=== PATIENT | female | born 1950 | race Caucasian/White ===

== ENCOUNTER 2021-01-02 18:34 | Inpatient (IN) | payer MEDICARE, OTHER ==
[~2021-01-02] VITALS: Ht 170.2 cm; Wt 80.3 kg
[2021-01-02 19:53] LABS: HEMOGLOBIN 13.1 gm/dl (12.3-15.3); RED BLOOD COUNT 4.67 M/UL (4.00-5.10); WHITE BLOOD COUNT 5.4 K/UL (4.5-11.0)
[2021-01-02 20:09] LABS: BUN/CREATININE RATIO 15 (0-10)
[2021-01-02] MEDS ORDERED: PEPCID40 MG PO (22:17)
[2021-01-02] MEDS ORDERED: VITAMIN C500 MG PO (22:18)
[2021-01-02] MEDS ORDERED: SYMBICORT 16010.2 GM INH (22:18)
[2021-01-02] MEDS ORDERED: FOSAMAX70 MG PO (22:19)
[2021-01-02] MEDS ORDERED: AMOXICILLIN500 MG PO (22:19)
[2021-01-02] MEDS ORDERED: PREDNISONE20 MG PO (22:21)
[2021-01-02] MEDS ORDERED: INCRUSE ELLI62.5 MCG INH (22:21)
[2021-01-02] MEDS ORDERED: LEVOTHYROXINE175 MC1 PO (22:22)
[2021-01-02] MEDS ORDERED: ELIQUIS 5 MG TAB5 MG PO (22:23)
[2021-01-02] MEDS ORDERED: NEURONTIN400 MG PO (22:23)
[2021-01-02] MEDS ORDERED: MULTAQ400 MG PO (22:23)
[2021-01-02] MEDS ORDERED: BUPRENORPHIN-N1 EACH PO (22:24)
[2021-01-02] MEDS ORDERED: ZINC50 M1 PO (22:25)
[2021-01-02] MEDS ORDERED: VITAMIN D325 MC6 PO (22:25)
[2021-01-02] MEDS ORDERED: GAVILAX17 GM PO (22:26)
[2021-01-02] MEDS ORDERED: ALBUTEROL2.5 MG/3 M INH (22:27)
[2021-01-03 03:31] LABS: HEMOGLOBIN 12.6 gm/dl (12.3-15.3); RED BLOOD COUNT 4.51 M/UL (4.00-5.10); WHITE BLOOD COUNT 4.1 K/UL (4.5-11.0)
[2021-01-03 03:55] LABS: BUN/CREATININE RATIO 17 (0-10)
--- NOTE | 2021-01-03 18:18 | NUR ---
REPORTED TO DR. RAPHAEL OF PATIENT EPISODES OF INCREASE HEART RATE UP TO 160'S. RECEIVED ORDER TO ORDER FOR EKG. SHOWED THE TELEMETRY READING SENT AND EKG RESULT. PATIENT HAS NO REPORTED EPISODE OF C/P, DIZZINESS OR ANY COMPLAINTS OF SICK OF STOMACH, DR RAPHAEL NO ORDER RECEIVED. MARK INFORMED ME THAT SHE WAS NOTIFIED BY TELEMETRY OF PATIENT HAVING EPISODE OF AFIB WITH RVR, HEART RATE INCREASED. REPORTED TO DR. RAPHAEL AND RECEIVED ORDER. INFORMED HIM OF CONCERN OF THE INCREASED HEART RATE. ADMINISTERED MEDICATIONS ORDERED AND AFTER 10 MIN HEART RATE WAS ON 80'S. PATIENT WATCHING TV, RESTING COMFORTABLY. DENIES ANY CARDIAC INSUFFISIENCY. REPORTED THE ABOVE TO DR. RAPHAEL AND ACKNOWLEDGED.
[2021-01-04 03:23] LABS: HEMOGLOBIN 13.1 gm/dl (12.3-15.3); RED BLOOD COUNT 4.7 M/UL (4.00-5.10); WHITE BLOOD COUNT 3.8 K/UL (4.5-11.0)
[2021-01-04 03:49] LABS: BUN/CREATININE RATIO 19 (0-10)
--- NOTE | 2021-01-04 10:19 | NUR ---
PATIENT REFUSED TO TAKE HER MORNING MEDICATIONS, OFFERED EARLIER AND OFFERED AGAIN THIS TIME. PATIENT STATED SHE WILL NOT TAKE HER MEDICINE UNTIL 1030 REPORTED THE ABOVE TO DR. RAPHAEL
[2021-01-05 03:32] LABS: HEMOGLOBIN 12.5 gm/dl (12.3-15.3); RED BLOOD COUNT 4.52 M/UL (4.00-5.10)
[2021-01-05 03:38] LABS: WHITE BLOOD COUNT 9.1 K/UL (4.5-11.0)
[2021-01-05 03:56] LABS: BUN/CREATININE RATIO 25 (0-10)
[2021-01-07 03:01] LABS: HEMOGLOBIN 12.7 gm/dl (12.3-15.3); RED BLOOD COUNT 4.57 M/UL (4.00-5.10); WHITE BLOOD COUNT 9.1 K/UL (4.5-11.0)
[2021-01-07 03:26] LABS: BUN/CREATININE RATIO 25 (0-10)
[2021-01-07] MEDS ORDERED: LOPRESSOR 25 MG25 MG PO (10:18)
[2021-01-07] MEDS ORDERED: IPRAT-ALBUT 0.5-3 ML NEB (10:18)
[2021-01-07] MEDS ORDERED: DOXYCYCLINE HY100 MG PO (10:20)
[2021-01-07] MEDS ORDERED: DEXAMETHASONE6 MG PO (10:20)
[2021-01-07] MEDS ORDERED: ZINC50 M1 PO (10:51)
== END 2021-01-07 17:44 | disposition home or self-care (01) | DRG 177 ==
LOC: ER1 18:34 → CDU 21:49 → M/S 21:49
PROVIDERS: Family Medicine; Internal Medicine; ADMIT Internal Medicine
PROC: 8E0ZXY6 Isolation (ICD-10-PCS; principal; 2021-01-02)
PROC: XW033E5 Introduction of Remdesivir Anti-infective into Peripheral Vein, Percutaneous Approach, New Technology Group 5 (ICD-10-PCS; 2021-01-02)
DX: U07.1 COVID-19 (principal); J12.82 Pneumonia due to coronavirus disease 2019; J96.21 Acute and chronic respiratory failure with hypoxia; D61.818 Other pancytopenia; F11.20 Opioid dependence, uncomplicated; J44.0 Chronic obstructive pulmonary disease with (acute) lower respiratory infection; J44.1 Chronic obstructive pulmonary disease with (acute) exacerbation; I48.0 Paroxysmal atrial fibrillation; G62.9 Polyneuropathy, unspecified; Z79.899 Other long term (current) drug therapy; Z79.01 Long term (current) use of anticoagulants; J44.9 Chronic obstructive pulmonary disease, unspecified; E03.9 Hypothyroidism, unspecified; F17.290 Nicotine dependence, other tobacco product, uncomplicated; Z88.2 Allergy status to sulfonamides; Z88.8 Allergy status to other drugs, medicaments and biological substances
CPT/HCPCS: ECHO; 36415; 36600; 71045; 80048; 80053; 80307; 81001; 82550; 82553; 82803; 83605; 83735; 84484; 85025; 85610; 87040; 87086; 93005; 93306; 94640; 94760; 96365; 96366; 96368; 96375; 97110; 97116; 97116-GP-CQ; 97162; 97530-GP-CQ; 99285; G0480; J0456; J0696; J1100; J2310; J7030; U0002

== ENCOUNTER 2021-04-20 17:14 | Emergency (ER) | payer OTHER, MEDICARE ==
[~2021-04-20 17:14] MED LIST: ALBUTEROL2.5 MG/3 M INH; AMOXICILLIN500 MG PO; BUPRENORPHIN-N1 EACH PO; DEXAMETHASONE6 MG PO; DOXYCYCLINE HY100 MG PO; ELIQUIS 5 MG TAB5 MG PO; FOSAMAX70 MG PO; GAVILAX17 GM PO; INCRUSE ELLI62.5 MCG INH; IPRAT-ALBUT 0.5-3 ML NEB; LEVOTHYROXINE175 MC1 PO; LOPRESSOR 25 MG25 MG PO; MULTAQ400 MG PO; NEURONTIN400 MG PO; PEPCID40 MG PO; PREDNISONE20 MG PO; SYMBICORT 16010.2 GM INH; VITAMIN C500 MG PO; VITAMIN D325 MC6 PO; ZINC50 M1 PO
[2021-04-20 17:46] LABS: RED BLOOD COUNT 3.95 M/UL (4.00-5.10); WHITE BLOOD COUNT 7.9 K/UL (4.5-11.0)
[2021-04-20 18:05] LABS: BUN/CREATININE RATIO 19 (0-10)
[2021-04-21] MEDS ORDERED: HYDROCODON-ACE1 EAC4 PO (00:57)
[2021-04-21] MEDS ORDERED: BACTROBAN OINT22 GM EXT (01:03)
[2021-04-21] MEDS ORDERED: CEPHALEXIN500 M1 PO (01:03)
== END 2021-04-21 01:28 | disposition home or self-care (01) ==
LOC: ER1 17:14
PROVIDERS: Physician Assistant
DX: S01.01XA Laceration without foreign body of scalp, initial encounter (principal); S81.812A Laceration without foreign body, left lower leg, initial encounter; S81.811A Laceration without foreign body, right lower leg, initial encounter; I48.91 Unspecified atrial fibrillation; E03.9 Hypothyroidism, unspecified; Z88.2 Allergy status to sulfonamides; Z88.6 Allergy status to analgesic agent; Z23 Encounter for immunization; W01.0XXA Fall on same level from slipping, tripping and stumbling without subsequent striking against object, initial encounter; Y92.410 Unspecified street and highway as the place of occurrence of the external cause; Y99.9 Unspecified external cause status
CPT/HCPCS: 12006; 70450; 71045; 72125; 72170; 73090; 73590; 73610; 80053; 82550; 82553; 83874; 84484; 85025; 85610; 90471; 90715; 93005; 96374; 96375; 96376; 99284; J0690; J2270; J2405

== ENCOUNTER 2021-09-06 16:58 | Inpatient (IN) | payer MEDICARE, OTHER ==
[~2021-09-06] VITALS: Ht 167.6 cm; Wt 86.2 kg
[~2021-09-06 16:58] MED LIST changes: +BACTROBAN OINT22 GM EXT; +CEPHALEXIN500 M1 PO; +HYDROCODON-ACE1 EAC4 PO
[2021-09-06 18:24] LABS: HEMOGLOBIN 11.9 gm/dl (12.3-15.3); RED BLOOD COUNT 4.33 M/UL (4.00-5.10); WHITE BLOOD COUNT 8.3 K/UL (4.5-11.0)
[2021-09-06 18:46] LABS: BUN/CREATININE RATIO 20 (0-10)
[2021-09-06] MEDS ORDERED: BETAPACE 80MG T80 MG PO (23:51)
[2021-09-06] MEDS ORDERED: BUMETANIDE1 MG PO (23:52)
[2021-09-06] MEDS ORDERED: DILTIAZEM 24HR120 M1 PO (23:52)
[2021-09-06] MEDS ORDERED: FLOXIN 0.3% OTIC5 ML EARLF (23:54)
[2021-09-06] MEDS ORDERED: KENALOG OINT 0.80 GM TP (23:55)
[2021-09-06] MEDS ORDERED: KENALOG CREAM 080 GM EXT (23:55)
[2021-09-06] MEDS ORDERED: VOLTAREN ARTHRI20 GM TP (23:57)
[2021-09-06] MEDS ORDERED: OMEGA 3 1,0001 EACH PO (23:58)
[2021-09-08 07:12] LABS: BUN/CREATININE RATIO 22 (0-10)
[2021-09-09] MEDS ORDERED: LEVALBUTER0.31 MG/3 NEB (11:27)
[2021-09-09] MEDS ORDERED: LASIX20 MG PO (11:28)
== END 2021-09-09 15:23 | disposition home or self-care (01) | DRG 291 ==
LOC: ER1 16:58 → CDU 20:54 → M/S 20:54
PROVIDERS: Emergency Medicine; Internal Medicine; ADMIT Internal Medicine
PROC: 5A2204Z Restoration of Cardiac Rhythm, Single (ICD-10-PCS; principal; 2021-09-07)
PROC: B24BZZZ Ultrasonography of Heart with Aorta (ICD-10-PCS; 2021-09-07)
PROC: 5A2204Z Restoration of Cardiac Rhythm, Single (ICD-10-PCS; 2021-09-08)
DX: I11.0 Hypertensive heart disease with heart failure (principal); I50.33 Acute on chronic diastolic (congestive) heart failure; J96.21 Acute and chronic respiratory failure with hypoxia; J44.1 Chronic obstructive pulmonary disease with (acute) exacerbation; E44.0 Moderate protein-calorie malnutrition; Z20.822 Contact with and (suspected) exposure to COVID-19; I48.19 Other persistent atrial fibrillation; I08.1 Rheumatic disorders of both mitral and tricuspid valves; R07.89 Other chest pain; G89.29 Other chronic pain; F11.90 Opioid use, unspecified, uncomplicated; E03.9 Hypothyroidism, unspecified; Z79.890 Hormone replacement therapy; Z87.891 Personal history of nicotine dependence; Z79.01 Long term (current) use of anticoagulants; Z99.81 Dependence on supplemental oxygen; Z98.890 Other specified postprocedural states; Z82.49 Family history of ischemic heart disease and other diseases of the circulatory system; Z88.2 Allergy status to sulfonamides; Z88.5 Allergy status to narcotic agent; Z90.49 Acquired absence of other specified parts of digestive tract; Z68.29 Body mass index [BMI] 29.0-29.9, adult
CPT/HCPCS: ECHO; 36415; 36600; 71045; 80048; 80053; 82550; 82553; 82803; 83605; 83735; 83874; 83880; 84100; 84439; 84443; 84484; 84550; 85025; 87040; 93005; 93270; 93306; 94640; 94760; 96374; 99285; J1200; J1742; J1940; J2250; J3010; J3480; J7040; U0002

== ENCOUNTER → 2021-09-18 | Outpatient (CLI) | payer MEDICARE, OTHER ==
[~2021-09-18] MED LIST changes: +BETAPACE 80MG T80 MG PO; +BUMETANIDE1 MG PO; +DILTIAZEM 24HR120 M1 PO; +FLOXIN 0.3% OTIC5 ML EARLF; +KENALOG CREAM 080 GM EXT; +KENALOG OINT 0.80 GM TP; +LASIX20 MG PO; +LEVALBUTER0.31 MG/3 NEB; +OMEGA 3 1,0001 EACH PO; +VOLTAREN ARTHRI20 GM TP
== END ==
LOC: EXRD 10:46
DX: R06.02 Shortness of breath (principal); R91.8 Other nonspecific abnormal finding of lung field
CPT/HCPCS: 71046